=== PATIENT | female | born 1965 | race American Indian/Alaskan Native ===

== ENCOUNTER 2016-12-06 14:48 | Emergency (ER) | payer MEDICARE ==
[2016-12-06 15:06] VITALS: BP 125/92
--- NOTE | 2016-12-06 16:23 | XRay Report ---
LEFT FOOT RADIOGRAPHS INDICATION: Pain, swelling. Hit on door jam. COMPARISON: None similar at this institution. FINDINGS: AP, lateral and oblique left foot radiographs demonstrate a nondisplaced fifth toe proximal phalanx fracture. Mild overlying soft tissue swelling and some also possible along the dorsum of the foot. No joint involvement. Small plantar calcaneal spur. Normal remainder bones. CONCLUSION: Subtle left fifth toe acute nondisplaced proximal phalanx fracture, as described. Thank you for the opportunity to participate in this patient's care.
--- NOTE | 2016-12-06 17:02 | Emergency Department Report ---
ED Lower Extremity HPI - General Chief Complaint: Extremity Injury, Lower Stated Complaint: LEFT FOOT INJURY Time Seen by Provider: 12/06/16 16:12 Source: patient Mode of arrival: Ambulatory Limitations: No Limitations - History of Present Illness Initial Comments: This 51-year-old female nontoxic, well nourished in appearance, no acute signs of distress presents to the ED complaining of left fifth toe pain 5 days. Patient stated she was walking and hit her left toe against a door. Patient denies any numbness or tingling. Denies joint swelling. Denies fever chills, chest pain or short of breath. Patient denies a past medical history besides diabetes. States allergies to codeine. MD Complaint: other (left fifth toe) -: Gradual, days(s) (5) Injury: Toes: Left Type of Injury: blunt Place: work Severity: mild Severity scale (0 -10): 7 Improves With: nothing Worsens With: nothing Context: direct blow Associated Symptoms: able to partially bear weight, ambulatory. denies: snap/ pop sensation, swelling, numbness, tingling, unable to bear weight - Related Data Previous Rx's Medication Instructions Recorded Last Taken Type Ibuprofen [Motrin 600 MG tab] 600 mg PO Q8H PRN #30 tablet 12/06/16 Unknown Rx Allergies Allergy/AdvReac Type Severity Reaction Status Date / Time codeine Allergy Vomiting Verified 11/16/12 10:40 ED Review of Systems ROS: Stated complaint: LEFT FOOT INJURY Other details as noted in HPI Constitutional: denies: chills, fever Eyes: denies: eye pain, eye discharge, vision change ENT: denies: ear pain, throat pain Respiratory: denies: cough, shortness of breath, wheezing Cardiovascular: denies: chest pain, palpitations Endocrine: no symptoms reported Gastrointestinal: denies: abdominal pain, nausea, diarrhea Genitourinary: denies: urgency, dysuria, discharge Musculoskeletal: denies: back pain, joint swelling, arthralgia Skin: denies: rash, lesions Neurological: denies: headache, weakness, paresthesias Psychiatric: denies: anxiety, depression Hematological/Lymphatic: denies: easy bleeding, easy bruising ED Past Medical Hx - Past Medical History Previous Medical History?: Yes Hx Diabetes: No - Surgical History Past Surgical History?: No - Social History Smoking Status: Current Every Day Smoker Substance Use Type: None - Medications Home Medications: Home Medications Medication Instructions Recorded Confirmed Last Taken Type Ibuprofen [Motrin 600 MG tab] 600 mg PO Q8H PRN #30 tablet 12/06/16 Unknown Rx ED Physical Exam - General Limitations: No Limitations General appearance: alert, in no apparent distress - Head Head exam: Present: atraumatic, normocephalic, normal inspection - Eye Eye exam: Present: normal appearance, PERRL, EOMI. Absent: scleral icterus, conjunctival injection, nystagmus, periorbital swelling, periorbital tenderness Pupils: Present: normal accommodation - ENT ENT exam: Present: normal exam, normal orophraynx, mucous membranes moist, TM's normal bilaterally, normal external ear exam - Neck Neck exam: Present: normal inspection, full ROM. Absent: tenderness, meningismus, lymphadenopathy, thyromegaly - Respiratory Respiratory exam: Present: normal lung sounds bilaterally. Absent: respiratory distress, wheezes, rales, rhonchi, stridor, chest wall tenderness, accessory muscle use, decreased breath sounds, prolonged expiratory - Cardiovascular Cardiovascular Exam: Present: regular rate, normal rhythm, normal heart sounds. Absent: bradycardia, tachycardia, irregular rhythm, systolic murmur, diastolic murmur, rubs, gallop - GI/Abdominal GI/Abdominal exam: Present: soft, normal bowel sounds. Absent: distended, tenderness, guarding, rebound, rigid, diminished bowel sounds - Rectal Rectal exam: Present: deferred - Extremities Exam Extremities exam: Present: normal inspection, full ROM, tenderness, normal capillary refill. Absent: pedal edema, joint swelling, calf tenderness - Expanded Lower Extremity Exam Left Hip exam: Present: normal inspection, full ROM Upper Leg exam: Present: normal inspection, full ROM Knee exam: Present: normal inspection, full ROM Lower Leg exam: Present: normal inspection, full ROM Ankle exam: Present: normal inspection, full ROM Foot/Toe exam: Present: normal inspection, full ROM, tenderness (fifth toe). Absent: swelling, abrasion, laceration, ecchymosis, deformity, crepidus, dislocation, erythema, amputation, puncture wound, foreign body, calcaneal tenderness, tenderness at base of 5th metatarsal, nail avulsion, subungual hematoma Neuro vascular tendon exam: Present: no vascular compromise. Absent: pulse deficit, abnormal cap refill, motor deficit, sensory deficit, tendon deficit, extremity cold to touch, pallor, abnormal 2-point discrimination, decreased fine /light touch, foot drop, peroneal nerve deficit, significant pain with passive ROM of distal joint Gait: Positive: observed and normal - Back Exam Back exam: Present: normal inspection, full ROM. Absent: tenderness, CVA tenderness (R), CVA tenderness (L), muscle spasm, paraspinal tenderness, vertebral tenderness, rash noted - Neurological Exam Neurological exam: Present: alert, oriented X3, CN II-XII intact, normal gait, reflexes normal - Psychiatric Psychiatric exam: Present: normal affect, normal mood - Skin Skin exam: Present: warm, dry, intact, normal color. Absent: rash ED Course Vital Signs 12/06/16 15:04 Temperature 98.9 F Pulse Rate 82 Respiratory 18 Rate Blood Pressure 125/92 O2 Sat by Pulse 100 Oximetry - Reevaluation(s) Reevaluation #1: 12/06/16 17:03 Patient is speaking in full sentences with no signs of distress noted. ED Lower Extremity MDM - Radiology Data Radiology results: report reviewed interpreted by me: Dr. Sexton Subtle left fifth toe acute proximal phalanx fracture. - Medical Decision Making This is a 51-year-old female that presents with left fifth toe acute nondisplaced proximal fracture. X-ray has been obtained and dictated by radiologist. Patient was notified of x-ray results with no further questions noted by the patient. Patient received tereso splint and orthopedic shoe at discharge. Patient was instructed to follow-up with a orthopedic doctor in 3-5 days or if symptoms worsen and continue return to emergency room as soon as possible.. Patient also received crutches at time of discharge. Critical care attestation.: If time is entered above; I have spent that time in minutes in the direct care of this critically ill patient, excluding procedure time. ED Disposition Clinical Impression: Closed fracture of phalanx of left fifth toe Qualifiers: Encounter type: initial encounter Qualified Code(s): S92.502A - Displaced unspecified fracture of left lesser toe(s), initial encounter for closed fracture Disposition: DC-01 TO HOME OR SELFCARE Is pt being admited?: No Does the pt Need Aspirin: No Condition: Stable Instructions: Toe Fracture (ED), Crutch Instructions (ED), Ibuprofen (By mouth) , RICE Therapy (ED) Additional Instructions: follow-up with a orthopedic doctor in 3-5 days or if symptoms worsen and continue return to emergency room as soon as possible. Prescriptions: Ibuprofen [Motrin 600 MG tab] 600 mg PO Q8H PRN #30 tablet PRN Reason: Pain Referrals: PRIMARY CARE, [Primary Care Provider] - 3-5 Days ABRIL SWAIN MD [Staff Physician] - 3-5 Days [facility] [Outside] - 3-5 Days [facility] [Outside] - 3-5 Days Forms: Work/School Release Form(ED)
== END 2016-12-06 17:47 | disposition home or self-care (01) ==
LOC: ED 14:48
DX: S92.502A Displaced unspecified fracture of left lesser toe(s), initial encounter for closed fracture (principal); F17.200 Nicotine dependence, unspecified, uncomplicated; W22.09XA Striking against other stationary object, initial encounter; Y93.9 Activity, unspecified; Y92.9 Unspecified place or not applicable; Y99.9 Unspecified external cause status

== ENCOUNTER 2016-12-17 12:26 | Emergency (ER) | payer MEDICARE ==
--- NOTE | 2016-12-17 19:36 | Emergency Department Report ---
ED Lower Extremity HPI - General Chief Complaint: Extremity Problem,Nontraumatic Stated Complaint: BROKEN TOE Time Seen by Provider: 12/17/16 19:12 Source: patient Mode of arrival: Ambulatory Limitations: No Limitations - History of Present Illness Initial Comments: This is a 51-year-old female nontoxic, well nourished in appearance, no acute signs of distress presents to the ED requesting for a medical clearance. Patient stated she was here 12/06/2016 and was diagnosed with subtle left 5th toe phalanx fracture and received surgical shoe and tereso tape. Patient stated she did not prompt follow-up with the orthopedic doctor due to work-related. Patient denies any new trauma to the region. Denies any numbness, tickling, fever, chills, nausea, vomiting, chest pain or short of breath. Patient denies any acute symptoms. Patient states allergies to codeine. Denies past medical history. MD Complaint: other (5th digit fracture) -: week(s) (2) Severity scale (0 -10): 0 Improves With: nothing Worsens With: nothing Associated Symptoms: ambulatory. denies: snap/pop sensation, swelling, numbness , tingling, unable to bear weight, able to partially bear weight - Related Data Previous Rx's Medication Instructions Recorded Last Taken Type Ibuprofen [Motrin 600 MG tab] 600 mg PO Q8H PRN #30 tablet 12/06/16 Unknown Rx Allergies Allergy/AdvReac Type Severity Reaction Status Date / Time codeine Allergy Vomiting Verified 11/16/12 10:40 ED Review of Systems ROS: Stated complaint: BROKEN TOE Other details as noted in HPI Constitutional: denies: chills, fever Eyes: denies: eye pain, eye discharge, vision change ENT: denies: ear pain, throat pain Respiratory: denies: cough, shortness of breath, wheezing Cardiovascular: denies: chest pain, palpitations Endocrine: no symptoms reported Gastrointestinal: denies: abdominal pain, nausea, diarrhea Genitourinary: denies: urgency, dysuria, discharge Musculoskeletal: denies: back pain, joint swelling, arthralgia Skin: denies: rash, lesions Neurological: denies: headache, weakness, paresthesias Psychiatric: denies: anxiety, depression Hematological/Lymphatic: denies: easy bleeding, easy bruising ED Past Medical Hx - Past Medical History Hx Diabetes: No - Social History Smoking Status: Never Smoker Substance Use Type: None - Medications Home Medications: Home Medications Medication Instructions Recorded Confirmed Last Taken Type Ibuprofen [Motrin 600 MG tab] 600 mg PO Q8H PRN #30 tablet 12/06/16 Unknown Rx ED Physical Exam - General Limitations: No Limitations General appearance: alert, in no apparent distress - Head Head exam: Present: atraumatic, normocephalic, normal inspection - Eye Eye exam: Present: normal appearance, PERRL, EOMI. Absent: scleral icterus, conjunctival injection, nystagmus, periorbital swelling, periorbital tenderness Pupils: Present: normal accommodation - ENT ENT exam: Present: normal exam, normal orophraynx, mucous membranes moist, TM's normal bilaterally, normal external ear exam - Neck Neck exam: Present: normal inspection, full ROM. Absent: tenderness, meningismus, lymphadenopathy, thyromegaly - Respiratory Respiratory exam: Present: normal lung sounds bilaterally. Absent: respiratory distress, wheezes, rales, rhonchi, stridor, chest wall tenderness, accessory muscle use, decreased breath sounds, prolonged expiratory - Cardiovascular Cardiovascular Exam: Present: regular rate, normal rhythm, normal heart sounds. Absent: bradycardia, tachycardia, irregular rhythm, systolic murmur, diastolic murmur, rubs, gallop - GI/Abdominal GI/Abdominal exam: Present: soft, normal bowel sounds. Absent: distended, tenderness, guarding, rebound, rigid, diminished bowel sounds - Rectal Rectal exam: Present: deferred - Extremities Exam Extremities exam: Present: normal inspection, full ROM, normal capillary refill. Absent: tenderness, pedal edema, joint swelling, calf tenderness - Expanded Lower Extremity Exam Left Hip exam: Present: normal inspection, full ROM Upper Leg exam: Present: normal inspection, full ROM Knee exam: Present: normal inspection, full ROM Lower Leg exam: Present: normal inspection, full ROM Ankle exam: Present: normal inspection, full ROM Foot/Toe exam: Present: normal inspection, full ROM. Absent: tenderness, swelling, abrasion, laceration, ecchymosis, deformity, crepidus, dislocation, erythema, amputation, puncture wound, foreign body, calcaneal tenderness, tenderness at base of 5th metatarsal, nail avulsion, subungual hematoma Neuro vascular tendon exam: Present: no vascular compromise Gait: Positive: observed and normal - Back Exam Back exam: Present: normal inspection, full ROM. Absent: tenderness, CVA tenderness (R), CVA tenderness (L), muscle spasm, paraspinal tenderness, vertebral tenderness, rash noted - Neurological Exam Neurological exam: Present: alert, oriented X3, CN II-XII intact, normal gait, reflexes normal - Psychiatric Psychiatric exam: Present: normal affect, normal mood - Skin Skin exam: Present: warm, dry, intact, normal color. Absent: rash - Other Other exam information: Left-sided digit phalanx tereso taped with fourth digit phalanx. Patient is wearing a surgical shoe. ED Course Vital Signs 12/17/16 12:44 Temperature 98 F Pulse Rate 84 Respiratory 20 Rate Blood Pressure 150/84 O2 Sat by Pulse 100 Oximetry - Reevaluation(s) Reevaluation #1: 12/17/16 19:40 Patient is speaking in full sentences with no signs of distress noted. ED Lower Extremity MDM - Medical Decision Making 51-year-old female presents with a medical clearance. I instructed and educated patient about following up with the orthopedic doctor because he is specialist and must be medically cleared by orthopedic doctor. Patient recently plan of care and states she'll follow up tomorrow to make an appointment. At time time of discharge, the patient does not seem toxic or ill in appearance. No acute signs of distress noted. Patient agrees to discharge treatment plan of care. No further questions noted by the patient. Critical care attestation.: If time is entered above; I have spent that time in minutes in the direct care of this critically ill patient, excluding procedure time. ED Disposition Clinical Impression: Closed fracture of phalanx of left fifth toe Qualifiers: Encounter type: initial encounter Qualified Code(s): S92.502A - Displaced unspecified fracture of left lesser toe(s), initial encounter for closed fracture Disposition: DC-01 TO HOME OR SELFCARE Is pt being admited?: No Does the pt Need Aspirin: No Condition: Stable Instructions: Toe Fracture (ED), RICE Therapy (ED) Additional Instructions: Follow-up with Dr. Jett or another orthopedic doctor to receive medical clearance. Referrals: PRIMARY MD ANDIE [Primary Care Provider] - 3-5 Days ABRIL JETT MD [Staff Physician] - 3-5 Days [facility] [Outside] - 3-5 Days [facility] [Outside] - 3-5 Days
[2016-12-17 22:27] VITALS: BP 156/83
== END 2016-12-17 19:50 | disposition home or self-care (01) ==
LOC: ED 12:26
DX: S92.502A Displaced unspecified fracture of left lesser toe(s), initial encounter for closed fracture (principal); X58.XXXA Exposure to other specified factors, initial encounter; Y93.9 Activity, unspecified; Y92.9 Unspecified place or not applicable; Y99.9 Unspecified external cause status
CPT/HCPCS: 99282

== ENCOUNTER 2017-06-19 10:41 | Emergency (ER) | payer MEDICARE ==
[2017-06-19 11:17] VITALS: BP 177/87
--- NOTE | 2017-06-19 14:28 | Emergency Department Report ---
ED Headache HPI - General Chief Complaint: Headache Stated Complaint: SINUS INFECTION Time Seen by Provider: 06/19/17 14:14 - History of Present Illness Initial Comments: Patient is a 52-year-old [place] female who is presenting with left-sided headache. Patient states that for the past 3-4 days she's had headache as 8 out of 10 in severity with yellow nasal drainage. Patient's had a mild cough as well. Patient denies any nausea vomiting chest pain or abdominal pain this time. Head Injury Location: frontal Associated Symptoms: facial pain, nasal congestion, nasal drainage. denies: confusion, fatigue, fever/chills, loss of consciousness, nausea/vomiting, stiff neck Allergies/Adverse Reactions: Allergies codeine Allergy (Verified 11/16/12 10:40) Vomiting Home Medications: Ambulatory Orders Ibuprofen [Motrin 600 MG tab] 600 mg PO Q8H PRN #30 tablet 12/06/16 Amoxicillin/Potassium Clav [Augmentin 875-125 Tablet] 1 each PO BID #14 tablet 06/19/17 Fluticasone [Flonase] 1 spray NS QDAY #1 bottle 06/19/17 HYDROcodone/APAP 5-325 [Plains 5/325] 1 each PO Q6HR PRN #12 tablet 06/19/17 Loratadine [Claritin] 10 mg PO DAILY #20 tablet 06/19/17 ED Review of Systems ROS: Stated complaint: SINUS INFECTION Other details as noted in HPI Comment: All other systems reviewed and negative ED Past Medical Hx - Past Medical History Previous Medical History?: Yes Hx Diabetes: No Additional medical history: sinus problems - Surgical History Past Surgical History?: Yes Additional Surgical History: tonsils and adenoids removed, Tubaligation - Social History Smoking Status: Current Every Day Smoker - Medications Home Medications: Home Medications Medication Instructions Recorded Confirmed Last Taken Type Ibuprofen [Motrin 600 MG tab] 600 mg PO Q8H PRN #30 tablet 12/06/16 Unknown Rx Amoxicillin/Potassium Clav 1 each PO BID #14 tablet 06/19/17 Unknown Rx [Augmentin 875-125 Tablet] Fluticasone [Flonase] 1 spray NS QDAY #1 bottle 06/19/17 Unknown Rx HYDROcodone/APAP 5-325 [Plains 1 each PO Q6HR PRN #12 tablet 06/19/17 Unknown Rx 5/325] Loratadine [Claritin] 10 mg PO DAILY #20 tablet 06/19/17 Unknown Rx ED Physical Exam - General Limitations: No Limitations General appearance: alert, in no apparent distress - Head Head exam: Present: atraumatic, normocephalic - Eye Eye exam: Present: normal appearance - ENT ENT exam: Present: mucous membranes moist, other (numbness over the left frontal left maxillary sinus.) - Neck Neck exam: Present: normal inspection - Respiratory Respiratory exam: Present: normal lung sounds bilaterally. Absent: respiratory distress - Cardiovascular Cardiovascular Exam: Present: regular rate, normal rhythm. Absent: systolic murmur, diastolic murmur, rubs, gallop - GI/Abdominal GI/Abdominal exam: Present: soft, normal bowel sounds - Extremities Exam Extremities exam: Present: normal inspection - Back Exam Back exam: Present: normal inspection - Neurological Exam Neurological exam: Present: alert, oriented X3 - Psychiatric Psychiatric exam: Present: normal affect, normal mood - Skin Skin exam: Present: warm, dry, intact, normal color. Absent: rash ED Course Vital Signs 06/19/17 11:14 Temperature 98.6 F Pulse Rate 75 Respiratory 18 Rate Blood Pressure 177/87 O2 Sat by Pulse 100 Oximetry Critical care attestation.: If time is entered above; I have spent that time in minutes in the direct care of this critically ill patient, excluding procedure time. ED Disposition Clinical Impression: Acute sinusitis Qualifiers: Sinusitis location: pansinusitis Recurrence: non-recurrent Qualified Code(s): J01.40 - Acute pansinusitis, unspecified Disposition: DC-01 TO HOME OR SELFCARE Is pt being admited?: No Does the pt Need Aspirin: No Condition: Stable Instructions: Sinusitis (ED) Prescriptions: Amoxicillin/Potassium Clav [Augmentin 875-125 Tablet] 1 each PO BID #14 tablet Fluticasone [Flonase] 1 spray NS QDAY #1 bottle HYDROcodone/APAP 5-325 [Plains 5/325] 1 each PO Q6HR PRN #12 tablet PRN Reason: Pain Loratadine [Claritin] 10 mg PO DAILY #20 tablet Referrals: PRIMARY CARE, [Primary Care Provider] - 3-5 Days
== END 2017-06-19 14:36 | disposition home or self-care (01) ==
LOC: ED 10:41
DX: J01.40 Acute pansinusitis, unspecified (principal); F17.200 Nicotine dependence, unspecified, uncomplicated
CPT/HCPCS: 99282

== ENCOUNTER 2019-03-27 11:11 | Emergency (ER) | payer MEDICARE ==
[2019-03-27 11:41] VITALS: BP 174/94
--- NOTE | 2019-03-27 11:47 | Emergency Department Report ---
Chief Complaint: Headache Stated Complaint: BACK/HEAD PAIN Time Seen by Provider: 03/27/19 11:39 - HPI History of Present Illness: 54 y/o female comes in for headache and back pain times 4 days. No fevers no chill. only take motrin 200mg times 3 doses in for days. No SOB, no cough. - Exam Physical Exam: Exam: Neuro exam: EMOI , PERRLA, gait normal, strenght intact 4/5. Following commands. Lungs CTA no wheezing Heart rate normal 100 beats Extremities FROM. MSE screening note: Focused history and physical exam performed. Due to findings the following was ordered: Referral to Primary Care provider. Which she reports that she has. ED Disposition for MSE Condition: Stable
== END 2019-03-27 12:00 | disposition left against medical advice (07) ==
LOC: ED 11:11
DX: R51 Headache (principal); Z53.21 Procedure and treatment not carried out due to patient leaving prior to being seen by health care provider